=== PATIENT | female | born 1985 | race Caucasian/White ===

== ENCOUNTER 2022-10-27 14:00 | Outpatient (REF) | payer BC, SELFPAY ==
[2022-10-27 14:57] LABS: Influenza A PCR NEGATIVE (Negative); Influenza B PCR NEGATIVE (Negative); Resp Syncy Virus RNA Qual PCR NEGATIVE (Negative); SARS COV2 PCR INHOUSE NEGATIVE (Negative)
== END 2022-10-27 14:01 | disposition home or self-care (01) ==
LOC: HO.LNP 14:00
PROVIDERS: Visit Provider Internal Medicine
DX: Z20.822 Contact with and (suspected) exposure to COVID-19 (principal); R09.89 Other specified symptoms and signs involving the circulatory and respiratory systems
CPT/HCPCS: 0241U

== ENCOUNTER 2023-11-02 22:08 | Emergency (ER) | payer BC, SELFPAY ==
--- NOTE | ~2023-11-02 | US_ITS ---
EXAMINATION: US ABDOMEN LIMITED CLINICAL INFORMATION: Right upper quadrant pain, elevated LFTs. COMPARISON: 02/27/2016 TECHNIQUE: Real-time imaging of the right upper quadrant abdominal viscera. FINDINGS: PANCREAS: The visualized proximal portion of the pancreas is unremarkable. The distal portion is obscured secondary to overlying bowel gas. LIVER: The liver is normal in size. The liver contour is normal. Parenchymal echogenicity is normal. No focal hepatic lesion. There is no intrahepatic biliary duct dilatation seen. GALLBLADDER: Status post cholecystectomy. COMMON BILE DUCT: Normal in caliber measuring 0.4 cm in diameter. RIGHT KIDNEY: No hydronephrosis. No renal calculi or focal parenchymal lesions. The kidney measures 12.0 cm in maximum dimension. FREE FLUID: None. US/US abdomen limited IMPRESSION: No acute findings identified. Status post cholecystectomy.
[2023-11-02 22:11] VITALS: BP 161/104; PULSE 88; RESP 18; TEMP 36.2; O2SAT 96; BMI 33.9
[2023-11-02 22:46] LABS: Hematocrit 39.3 % (37.0-47.0); Hemoglobin 13.5 g/dl (12.0-16.0); Mean Corpuscular HGB Conc 34.4 g/dl (31.0-35.0); Mean Corpuscular Hemoglobin 30.3 pg (27.0-33.0); Mean Corpuscular Volume 88.3 fL (80.0-98.0); Mean Platelet Volume 8.8 fL (9.4-12.3); Platelet Count 178 X10*3/uL (160-400); Red Blood Count 4.45 X10*6/uL (4.20-5.50); Red Cell Distribution Width 12.5 % (11.0-16.0); White Blood Count 7.6 X10*3/uL (4.8-10.8)
[2023-11-02 22:59] LABS: Alanine Aminotransferase 835 U/L (0-31); Albumin Level 4.1 g/dL (3.5-5.0); Alkaline Phosphatase 445 U/L (39-117); Anion Gap 13 (12-20); Aspartate Amino Transferase 409 U/L (5-31); Bilirubin Direct 1.5 mg/dL (0.0-0.5); Bilirubin Total 1.9 mg/dL (0.0-1.0); Blood Urea Nitrogen 10 mg/dL (9-16); Calcium 9.9 mg/dL (8.4-10.2); Carbon Dioxide 30 mmol/L (22-29); Chloride 96 mmol/L (96-108); Creatinine Clr Calc Pharmacy 96.6; Estimated Glomerular Filt Rate > 60; Glucose Random 117 mg/dL (60-115); Sodium 136 mmol/L (135-145); Total Protein 7.6 g/dL (6.5-8.0)
[2023-11-02 23:16] LABS: Atypical Lymph Absolute Manual 1.7 x10*3/uL; Atypical Lymphs Percent Manual 23 % (0-6); Band Neutrophils Percent 1 % (3-5); Basophils Abs Manual 0.1 X10*3/uL (0.0-0.2); Basophils Percent Manual 1 % (0-2); Eosinophils Absolute Manual 0.1 X10*3/uL (0.0-0.4); Eosinophils Percent Manual 1 % (0-4); Lymphocytes Absolute Manual 2.7 X10*3/uL (1.2-4.9); Lymphocytes Percent Manual 36 % (20-40); Monocytes Absolute Manual 0.5 X10*3/uL (0.1-1.2); Monocytes Percent Manual 6 % (2-11); Neutrophils Absolute Manual 2.5 X10*3/uL (2.0-8.3); Neutrophils Percent Manual 32 % (45-73)
[2023-11-02 23:19] LABS: Dohle Bodies PRESENT; Platelet Estimate NORMAL (NORMAL); Platelet Morphology Comment NORMAL; RBC Morphology NORMAL
[2023-11-03 00:17] LABS: Lipase 35 U/L (8-78)
--- NOTE | 2023-11-03 00:39 | ED.ANXIETY ---
HPI - Anxiety General Chief Complaint: Anxiety Stated Complaint: severe anxiety,abd pain Time Seen by Provider: 11/03/23 00:36 Source: patient Mode of arrival: ambulatory Limitations: no limitations History of Present Illness HPI narrative: Patient with history of anxiety disorder status post cholecystectomy patient's mother a week ago since then patient has been feeling more anxious unable to sleep having epigastric pain unable to eat much does have history of elevated liver enzymes after back surgery came back to normal denies any significant alcohol use patient does take Tylenol about 2000 mg a day no history of hepatitis Related Data Home Medications Medication Instructions Recorded Confirmed cholecalciferol (vitamin D3) 50 50 mcg PO DAILY 10/27/22 10/27/22 mcg (2,000 unit) capsule levonorgestrel 21 mcg/24 hours (8 intrauterine 10/27/22 10/27/22 yrs) 52 mg intrauterine device (Mirena) Previous Rx's Medication Instructions Recorded azithromycin 250 mg tablet 250 mg PO ONCE 5 days #6 tabs 10/27/22 hydrochlorothiazide 25 mg tablet 25 mg PO DAILY #30 tabs 10/27/22 lisinopril 5 mg tablet 5 mg PO DAILY #30 tabs 10/27/22 lorazepam 1 mg tablet (Ativan) 1 mg PO BEDTIME PRN anxiety/sleep 11/03/23 #10 tabs Allergies Allergy/AdvReac Type Severity Reaction Status Date / Time amoxicillin [AMOXICILLIN] Allergy Mild HIVES Verified 11/03/23 01:11 nifedipine [NIFEDIPINE] Allergy Mild ITCHING Verified 11/03/23 01:11 Sulfa (Sulfonamide Allergy Mild RASH Verified 11/03/23 01:11 Antibiotics) [SULFA(SULFONAMIDE ANTIBIOTICS)] Review of Systems Review of Systems: Yes all other systems are reviewed and are negative [facility] Social History Social History Alcohol intake: current Alcohol intake frequency: holidays/special occasions only Smoked in Last 30 Days: No Use of substances other than those prescribed or required for medical reasons: Yes Substance Use Type: Marijuana Substance Use Frequency: Daily Advance Directives: No Advance Directives Information Provided: Yes Patient : No Physical Exam Vital Signs: Vital Signs: Last Vital Signs Temp 98.0 F 11/03/23 04:00 Pulse 81 11/03/23 04:00 Resp 16 11/03/23 04:00 BP 122/73 11/03/23 04:00 Pulse Ox 97 11/03/23 04:00 O2 Del Method Room Air 11/03/23 04:00 BMI result Body Mass Index 33.9 Appearance: Alert. Oriented X3. Very anxious Eyes: no pallor , ?icterus+ ENT: Pharynx normal. Oral Mucosa moist enlarged tonsils+ Neck: Normal inspection. Neck supple. Upper cervical lymph node+ CVS: Normal heart rate and rhythm. Pulses normal. Respiratory: No respiratory distress. Equal air entry bilateral, no wheezing/rales/rhonchi Abdomen: Soft , tenderness in epigastric area. Bowel sounds are present, no mass palpable, no CVA tenderness Skin: Skin warm and dry. Normal skin color. Normal skin turgor. Extremities: No lower extremity edema. No calf tenderness Neuro: Oriented X 3. No motor deficit. Medications Administered Discontinued Medications Generic Name Dose Route Start Last Admin Trade Name Freq PRN Reason Stop Dose Admin Sodium Chloride 1,000 mls @ 999 mls/hr 11/03/23 01:57 11/03/23 04:09 Ns IV 11/03/23 02:57 Infused .Q1H1M ONE Infusion Lorazepam 2 mg 11/03/23 00:42 11/03/23 01:12 Lorazepam 1 Mg Tablet PO 11/03/23 00:43 2 mg ONCE ONE Administration Potassium Bicarbonate 25 meq 11/03/23 02:01 11/03/23 02:06 Potassium Bicarbonate/Cit Ac 25 Meq Tablet.Eff PO 11/03/23 02:02 25 meq ONCE ONE Administration Medical Decision Making Medical Decision Making [facility] Narrative: Patient with infectious mononucleosis with elevated liver function with recent of her mother with increased anxiety and grief reaction elevated LFT likely from mononucleosis although patient does take Tylenol but around level is negative patient advised to follow with director of digital platforms in 2 weeks to recheck her liver function avoid alcohol use and avoid Tylenol use Differential Diagnosis Differential Diagnoses: The differential diagnosis associated with the presentation includes Grief/anxiety reaction Tylenol overdose/toxicity/strep/ infectious mononucleosis Lab Data [facility] Lab Attestation statement: I reviewed the patient's lab results. 11/02/23 22:39 11/02/23 22:39 Labs: Lab Results 11/02/23 11/03/23 11/03/23 Range/Units 22:39 01:22 04:09 WBC 7.6 (4.8-10.8) X10*3/uL RBC 4.45 (4.20-5.50) X10*6/uL Hgb 13.5 (12.0-16.0) g/dl Hct 39.3 (37.0-47.0) % MCV 88.3 (80.0-98.0) fL MCH 30.3 (27.0-33.0) pg MCHC 34.4 (31.0-35.0) g/dl RDW 12.5 (11.0-16.0) % Plt Count 178 (160-400) X10*3/uL MPV 8.8 L (9.4-12.3) fL Immature Gran % (Auto) Cancelled Neut % (Auto) Cancelled Lymph % (Auto) Cancelled Power % (Auto) Cancelled Eos % (Auto) Cancelled Baso % (Auto) Cancelled Lymph # (Auto) Cancelled Power # (Auto) Cancelled Eos # (Auto) Cancelled Baso # (Auto) Cancelled Abs Immat Gran (auto) Cancelled Absolute Neuts (auto) Cancelled Absolute Nucleated RBC 0.000 (0.0-0.012) X10*3/uL Nucleated RBC % (auto) 0.0 (0.0-0.2) /100WBC Neutrophils % (Manual) 32 L (45-73) % Band Neutrophils % 1 L (3-5) % Lymphocytes % (Manual) 36 (20-40) % Atypical Lymphs % (Man) 23 H (0-6) % Monocytes % (Manual) 6 (2-11) % Eosinophils % (Manual) 1 (0-4) % Basophils % (Manual) 1 (0-2) % Abs Neuts (Manual) 2.5 (2.0-8.3) X10*3/uL Lymphocytes # (Manual) 2.7 (1.2-4.9) X10*3/uL Atyp Lymphs # (Manual) 1.7 x10*3/uL Monocytes # (Manual) 0.5 (0.1-1.2) X10*3/uL Eosinophils # (Manual) 0.1 (0.0-0.4) X10*3/uL Basophils # (Manual) 0.1 (0.0-0.2) X10*3/uL Dohle Bodies PRESENT Platelet Estimate NORMAL (NORMAL) Plt Morphology Comment NORMAL RBC Morphology NORMAL Sodium 136 (135-145) mmol/L Potassium 3.0 L (3.3-5.1) mmol/L Chloride 96 (96-108) mmol/L Carbon Dioxide 30 H (22-29) mmol/L Anion Gap 13 (12-20) BUN 10 (9-16) mg/dL Creatinine 0.90 (0.5-1.4) mg/dL Estim Creat Clear Calc 96.6 Estimated GFR > 60 Random Glucose 117 H (60-115) mg/dL Calcium 9.9 (8.4-10.2) mg/dL Total Bilirubin 1.9 H 2.0 H (0.0-1.0) mg/dL Direct Bilirubin 1.5 H 1.6 H (0.0-0.5) mg/dL AST 409 H 361 H (5-31) U/L ALT 835 H 792 H (0-31) U/L Alkaline Phosphatase 445 H 430 H (39-117) U/L Total Protein 7.6 7.4 (6.5-8.0) g/dL Albumin 4.1 4.0 (3.5-5.0) g/dL Lipase 35 (8-78) U/L Urine Color Yellow Urine Appearance Clear Urine pH 6.5 (5.0-9.0) Ur Specific [place] 1.010 (1.005-1.025) Urine Protein Negative (Neg-Trace) mg/dL Urine Glucose (UA) Negative (Negative) mg/dL Urine Ketones Negative (Negative) mg/dL Urine Blood Negative (Negative) Urine Nitrite Negative (Negative) Ur Leukocyte Esterase Negative (Negative) Urine RBC 0-2 (0-2) /HPF Urine WBC 0-5 (0-5) /HPF Ur Squamous Epith Cells 3-5 (0-2) /HPF Urine Bacteria 1+ (None Seen) Hyaline Casts 0-2 (0-2) /LPF Acetaminophen < 3 (<30) mcg/mL Monoscreen Positive A (Negative) S. pyogenes GrpA BISHOP (Negative) 11/03/23 Range/Units 05:59 WBC (4.8-10.8) X10*3/uL RBC (4.20-5.50) X10*6/uL Hgb (12.0-16.0) g/dl Hct (37.0-47.0) % MCV (80.0-98.0) fL MCH (27.0-33.0) pg MCHC (31.0-35.0) g/dl RDW (11.0-16.0) % Plt Count (160-400) X10*3/uL MPV (9.4-12.3) fL Immature Gran % (Auto) Neut % (Auto) Lymph % (Auto) Power % (Auto) Eos % (Auto) Baso % (Auto) Lymph # (Auto) Power # (Auto) Eos # (Auto) Baso # (Auto) Abs Immat Gran (auto) Absolute Neuts (auto) Absolute Nucleated RBC (0.0-0.012) X10*3/uL Nucleated RBC % (auto) (0.0-0.2) /100WBC Neutrophils % (Manual) (45-73) % Band Neutrophils % (3-5) % Lymphocytes % (Manual) (20-40) % Atypical Lymphs % (Man) (0-6) % Monocytes % (Manual) (2-11) % Eosinophils % (Manual) (0-4) % Basophils % (Manual) (0-2) % Abs Neuts (Manual) (2.0-8.3) X10*3/uL Lymphocytes # (Manual) (1.2-4.9) X10*3/uL Atyp Lymphs # (Manual) x10*3/uL Monocytes # (Manual) (0.1-1.2) X10*3/uL Eosinophils # (Manual) (0.0-0.4) X10*3/uL Basophils # (Manual) (0.0-0.2) X10*3/uL Dohle Bodies Platelet Estimate (NORMAL) Plt Morphology Comment RBC Morphology Sodium (135-145) mmol/L Potassium (3.3-5.1) mmol/L Chloride (96-108) mmol/L Carbon Dioxide (22-29) mmol/L Anion Gap (12-20) BUN (9-16) mg/dL Creatinine (0.5-1.4) mg/dL Estim Creat Clear Calc Estimated GFR Random Glucose (60-115) mg/dL Calcium (8.4-10.2) mg/dL Total Bilirubin (0.0-1.0) mg/dL Direct Bilirubin (0.0-0.5) mg/dL AST (5-31) U/L ALT (0-31) U/L Alkaline Phosphatase (39-117) U/L Total Protein (6.5-8.0) g/dL Albumin (3.5-5.0) g/dL Lipase (8-78) U/L Urine Color Urine Appearance Urine pH (5.0-9.0) Ur Specific [place] (1.005-1.025) Urine Protein (Neg-Trace) mg/dL Urine Glucose (UA) (Negative) mg/dL Urine Ketones (Negative) mg/dL Urine Blood (Negative) Urine Nitrite (Negative) Ur Leukocyte Esterase (Negative) Urine RBC (0-2) /HPF Urine WBC (0-5) /HPF Ur Squamous Epith Cells (0-2) /HPF Urine Bacteria (None Seen) Hyaline Casts (0-2) /LPF Acetaminophen (<30) mcg/mL Monoscreen (Negative) S. pyogenes GrpA BISHOP Negative (Negative) Discharge Plan Discharge Clinical Impression: Acute anxiety, Elevated liver function tests, Infectious mononucleosis Patient Disposition: Home, Self-Care Instructions: Mononucleosis (ED), Anxiety (ED) Additional Instructions: Drink plenty of fluids Medicine for anxiety as prescribed You have mononucleosis avoid sexual or close contact Recheck your liver enzymes in next week Do not take Tylenol or drink alcohol Prescriptions: New lorazepam [Ativan] 1 mg tablet 1 mg PO BEDTIME PRN (Reason: anxiety/sleep) Qty: 10 0RF No Action cholecalciferol (vitamin D3) 50 mcg (2,000 unit) capsule 50 mcg PO DAILY Mirena 20 mcg/24 hours (8 yrs) 52 mg intrauterine device intrauterine lisinopril 5 mg tablet 5 mg PO DAILY Qty: 30 0RF hydrochlorothiazide 25 mg tablet 25 mg PO DAILY Qty: 30 0RF azithromycin 250 mg tablet 250 mg PO ONCE 5 Days Qty: 6 0RF Rx Instructions: Take 2 tablets today then 1 daily Referrals: Hunter Lovett MD [Physician] - 1 week
--- NOTE | 2023-11-03 00:58 | PC.NURSE ---
pt walked to ultrasound at this time.
[2023-11-03 01:09] VITALS: BP 173/91; PULSE 89; RESP 20; TEMP 36.7; O2SAT 96
[2023-11-03] MEDS: LORazepam 1 MG TABLET 2 MG PO (01:12)
[2023-11-03 01:35] LABS: Appearance Urine Clear; Color Urine Yellow; Glucose Urine UA Negative (Negative); Leukocyte Esterase Urine Negative (Negative); Nitrite Urine Negative (Negative); PH 6.5 (5.0-9.0); Urine Blood Negative (Negative); Urine Ketones Negative (Negative); Urine Protein Negative (Neg-Trace)
[2023-11-03 01:39] LABS: Bacteria Urine 1+ (None Seen); Hyaline Casts Urine 0-2 /LPF (0-2); RBC Urine 0-2 /HPF (0-2); WBC Urine 0-5 /HPF (0-5)
[2023-11-03] MEDS: Potassium Bicarbonate/Cit AC 25 MEQ TABLET.EFF PO (02:06)
[2023-11-03] MEDS: 0.9 % Sodium Chloride 1,000 ML 999 ML IV (02:06)
[2023-11-03 04:00] VITALS: BP 122/73; PULSE 81; RESP 16; TEMP 36.7; O2SAT 97
[2023-11-03 04:27] LABS: Alanine Aminotransferase 792 U/L (0-31); Alkaline Phosphatase 430 U/L (39-117); Aspartate Amino Transferase 361 U/L (5-31); Bilirubin Direct 1.6 mg/dL (0.0-0.5); Total Protein 7.4 g/dL (6.5-8.0)
[2023-11-03 04:35] LABS: Acetaminophen LAB < 3 mcg/mL (<30)
[2023-11-03 05:00] LABS: Monotest Positive (Negative)
[2023-11-03 06:12] LABS: IDNOW Serial# 08D9AD1C; Strep A Nucleic Acid Negative (Negative)
[2023-11-03 06:33] VITALS: BP 149/90; PULSE 90; RESP 16; O2SAT 97
== END 2023-11-03 06:50 | disposition home or self-care (01) ==
PROVIDERS: Emergency Medicine; Emergency Provider Internal Medicine; PCP Internal Medicine
DX: F41.9 Anxiety disorder, unspecified (principal); B27.90 Infectious mononucleosis, unspecified without complication; R79.89 Other specified abnormal findings of blood chemistry; R10.13 Epigastric pain; I10 Essential (primary) hypertension; Z72.89 Other problems related to lifestyle; Z63.4 Disappearance and death of family member; Z79.899 Other long term (current) drug therapy
CPT/HCPCS: 36415; 76705; 80053; 80076; 80143; 81001; 82248; 83690; 85007; 85025; 85027; 86308; 87651; 96360; 96361; 99284; 99285